=== PATIENT | male | born 1945 | race Caucasian/White ===

== ENCOUNTER 2017-07-06 10:44 | Emergency (ER) | payer MEDICARE, OTHER ==
--- NOTE | 2017-07-06 10:51 | ERNOTE ---
Dyspnea - Date Date of Service: 07/06/17 - General Time Seen by Provider: 07/06/17 10:49 - Immun/Allergies/Home Medications Immunizations: IMMUNIZATION HX Immunizations Up to Date Yes History of Influenza Vaccine No Hx Pneumococcal Vaccination No Allergies/Adverse Reactions: Allergies influenza virus vaccine, specific [influenza virus vacc,specific] Allergy (Mild , Verified 07/06/17 10:55) Hives meperidine HCl [From Demerol] Allergy (Mild, Verified 07/06/17 10:55) Hives NAUSEA/VOMITING Home Medications: HOME MEDICATIONS Azithromycin 250 mg PO DAILY #6 tablet 07/02/17 [Last Taken Unknown] Ondansetron HCl [Zofran] 1 - 2 tab PO Q8H PRN #10 tab 07/02/17 [Last Taken Unknown] Albuterol Sulfate [Ventolin Hfa] 2 puff IH Q4H PRN #1 inhaler 07/06/17 [Last Taken Unknown] Doxycycline Monohydrate 100 mg PO BID #20 tablet 07/06/17 [Last Taken Unknown] predniSONE [Prednisone] 3 tab PO DAILY #9 tab 07/06/17 [Last Taken Unknown] - History of Present Illness Narrative: Pt. comes in with c/o 5 day history of cough and chest congestion and states that this morning his breathing became difficult. Pt. was treated here for Pneumonia four days ago and took his last abx today. Pt. denies any fever, fatigue, malaise, NVD, alleviating or aggravating factors at this time. 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 Denies: chest pain/discomfort, palpitations, lightheadedness, weakness, tingling of hands/face, muscle spasms, loss of appetite Prior Treatment: Reports: recently seen, treated by physician, currently on antibiotics Review of Systems - Review of Systems Constitutional: Present: no symptoms reported. Absent: fever, chills, weakness , fatigue, malaise EYE: Present: no symptoms reported ENT: Present: no symptoms reported Respiratory: Present: shortness of breath, cough. Absent: wheezing Cardiology: Present: no symptoms reported. Absent: chest pain, palpitations, edema Gastrointestinal/Abdominal: Present: no symptoms reported. Absent: nausea, vomiting, diarrhea Genitourinary: Present: no symptoms reported. Absent: frequency, decreased urinary output, discharge Musculoskeletal: Present: no symptoms reported. Absent: back pain, joint pain Skin: Present: no symptoms reported. Absent: rash, change in color Neurological: Present: no symptoms reported. Absent: headache, dizziness/light- headedness, numbness, tingling All Other Systems: All systems neg except as marked - Patient's Past Medical History Patient History - Medical: GERD Patient History - Cardiac/Respiratory: No pertinent hx Patient History - Cancer: No Hx of Cancer Patient History - Surgical Procedures: Cataracts, Other Patient History - Other: None - Family History Mother Family History - Medical: , No pertinent hx Family History - Cardiac/Respiratory: CVA/Stroke, Myocardial Infarction, TIA Father Family History - Medical: , No pertinent hx Family History - Cardiac/Respiratory: Myocardial Infarction Brother Family History - Medical: No pertinent hx, Other Family History - Cardiac/Respiratory: No pertinent hx Sister Family History - Medical: No pertinent hx, Other Family History - Cardiac/Respiratory: History Unknown - Social History Abuse History: No History of abuse Psych History: No pertinent hx - Immunizations Immunizations Up to Date: Yes Hx Pneumococcal Vaccination: No History of Influenza Vaccine: No Physical Exam - Physical Exam General Appearance: Present: wd/wn, alert, no apparent distress Head Exam: Present: normal inspection, no evidence of injury, no tenderness w palpation Eye Exam: Normal inspection: bilateral Ears, Nose, Throat: Present: normal ENT inspection, normal pharynx. Absent: abnormal TM (R), abnormal TM (L), nasal congestion, sinus pain/drainage, pharyngeal erythema Neck: Present: normal inspection, nontender, supple, full range of motion. Absent: lymphadenopathy (R), lymphadenopathy (L) Respiratory: Present: no respiratory distress, no accessory muscle use, chest nontender, decreased breath sounds - LLL, LML, wheezing - exp DEBORA. Absent: crackles, rales, rhonchi Cardiovascular/Chest: Present: regular rate, rhythm, no murmur, normal peripheral pulses Gastrointestinal/Abdominal: Present: normal bowel sounds, nontender, nondistended, soft, no organomegaly Back Exam: Present: normal inspection Extremity Exam: Present: normal inspection, non-tender, normal range of motion, no edema Neurological Exam: Present: alert, oriented, normal mood/affect, no motor/ sensory deficits Skin Exam: Present: normal color, warm/dry. Absent: pallor, skin rash ED Progress - Date and Time Seen: Date and Time: 07/06/17 12:15 As pt. is worsening believe he needs steroids added to regime as well as inhaler and abx change - Results and Orders Patient's Lab Results:: I have reviewed the patient's lab results. Results and Orders: Abnormal Lab Results 07/06/17 07/06/17 Range/Units 11:05 11:05 WBC 12.0 H (4.0-10.5) K/mm3 Immature Gran % (Auto) 0.60 H (0.001-0.429) % Immature Gran # (Auto) 0.07 H (0.000-0.0310) K/mm3 Neutrophils % 79.7 H (42-75.0) % Lymphocytes % 9.2 L (20-51) % Monocytes % 9.5 H (0.0-9) % Neutrophils # 9.6 H (1.3-6.0) K/mm3 Lymphocytes # 1.1 L (1.5-3.5) k/mm3 Monocytes # 1.1 H (0.0-1.0) k/mm3 Est GFR (Non-Af Amer) 53 L (60-130) mL/min - Vital Signs Patient's Vital Signs:: I have reviewed the patient's vital signs. - EKG EKG: NSR, other - Left atrial enlargement, Anterior lead non specific st abnormality no acute change - X-Ray X-Ray #1 X-Ray: chest Interpretation: Reviewed by me X-ray Comments: Scatered granulomatous disease and Bilateral scarring. Departure Clinical Impression: Bronchitis - Departure Disposition: Home self-care Condition: Good Instructions: Acute Bronchitis Additional Instructions: Please follow up with primary provider in 2-3 days if not improving. Referrals: Ramesh Cannon MD [Primary Care Provider] - Prescriptions: Albuterol Sulfate [Ventolin Hfa] 2 puff IH Q4H PRN #1 inhaler PRN Reason: Shortness Of Breath Doxycycline Monohydrate 100 mg PO BID #20 tablet predniSONE [Prednisone] 3 tab PO DAILY #9 tab
[2017-07-06] MEDS ORDERED: ALBUTEROL SULFATE 2.5 MG/0.5 ML VIAL.NEB IH ONE ×2 (11:02→11:09)
[2017-07-06 11:14] LABS: Hematocrit 44.2 % (42.0-52.0); Hemoglobin 14.6 gm/dL (13.5-18.0); Mean Cell Volume 85.2 fl (78-100); Mean Corpuscular Hemoglobin 28.1 pg (27-31); Mean Platelet Volume 9.3 fl (6.0-9.5); Neutrophil # 9.6 K/mm3 (1.3-6.0); Neutrophil % 79.7 % (42-75.0); Platelet Count 183 K/mm3 (150-450); Red Blood Count 5.19 M/mm3 (4.7-6.0); Red Cell Distribution Width 13.1 % (11.5-14.0)
[2017-07-06 11:34] LABS: ALT 26 U/L (19-67); AST 22 U/L (0-48); Albumin * 3.9 gm/dl (3.4-5.0); Alkaline Phosphatase * 113 U/L (50-170); Anion Gap 11.7 mmol/L (6.8-13.8); BNP * 334 pg/mL (5-350); BUN/Creatinine Ratio 9.3 (9.0-21.6); Blood Urea Nitrogen 13 mg/dL (6-23); Ca. Corrected For Albumin 8.6 mg/dL (8.4-10.2); Calcium * 8.8 mg/dL (7.9-10.9); Carbon Dioxide 28.4 mmol/L (24-32.6); Chloride 104 mmol/L (97-106); Glucose * 98 mg/dL (70-110); Potassium 4.1 mmol/L (3.4-4.6); Sodium 140 mmol/L (132-142); Total Protein 7.3 gm/dL (6.2-8.2)
[2017-07-06 11:39] LABS: Troponin I Less than 0.017 ng/ml (0.00-0.10)
[2017-07-06 11:44] VITALS: BP 106/67
== END 2017-07-06 12:20 | disposition home or self-care (01) ==
LOC: ER 10:44
DX: J40 Bronchitis, not specified as acute or chronic (principal)